=== PATIENT | male | born 1990 | race Caucasian/White ===

== ENCOUNTER 2020-10-26 14:13 | Emergency (ER) | payer BC ==
[2020-10-26] MEDS ORDERED: methylPREDNISolone Sodium Succinate 125 MG/2 ML SDV IVPUSH PRN (17:52)
[2020-10-26] MEDS ORDERED: diphenhydrAMINE 50 MG/ML SDV IVPUSH PRN (17:52)
[2020-10-26] MEDS ORDERED: Albuterol 6.7 GM Inhaler INH PRN (17:52)
[2020-10-26] MEDS ORDERED: EPINEPHrine 1 MG/ML SDV IM PRN (17:52)
[2020-10-26] MEDS ORDERED: Famotidine 20 MG/2 ML SDV IVPUSH PRN (17:52)
--- NOTE | 2020-10-26 17:59 | EDM.PDOC ---
ED HPI GENERAL MEDICAL PROBLEM - General Chief Complaint: Respiratory Problem Stated Complaint: COVID + SOB Time Seen by Provider: 10/26/20 17:28 Source of Information: Reports: Patient History Limitations: Reports: No Limitations - History of Present Illness INITIAL COMMENTS - FREE TEXT/NARRATIVE: 29-year-old male presents the emergency department with worsening Covid symptoms . Patient states he was diagnosed with Covid on October 20, 2020. He states he had symptoms 3 days prior to that. He presents today with worsening shortness of breath, cough and pain behind his eyes. He states he has had mild nausea without vomiting. He states he has not been eating much more than crackers however he has been able to take p.o. fluids adequately. He is also stated that he has had some diarrhea however this seems to have resolved. States he is otherwise healthy. He does not smoke, drinks alcohol on occasion and does not use recreational drugs. He has no past medical history and does not take any prescription medications. - Related Data Allergies Allergy/AdvReac Type Severity Reaction Status Date / Time No Known Allergies Allergy Verified 10/26/20 17:57 Home Meds: Home Meds . [No Known Home Meds] 10/26/20 [History] Past Medical History Other Musculoskeletal History: dislocated L elbow with surgeries - Past Surgical History GI Surgical History: Reports: Appendectomy Social & Family History - Tobacco Use Years of Tobacco use: 15 Packs/Tins Daily: 3 - Caffeine Use Caffeine Use: Reports: Tea - Recreational Drug Use Recreational Drug Use: No ED ROS GENERAL - Review of Systems Review Of Systems: Comprehensive ROS is negative, except as noted in HPI. ED EXAM, GENERAL - Physical Exam Exam: See Below Exam Limited By: No Limitations General Appearance: Alert, WD/WN, Mild Distress Ears: Normal External Exam, Hearing Grossly Normal Nose: Normal Inspection Throat/Mouth: Normal Inspection, Normal Lips, Normal Voice, No Airway Compromise Head: Atraumatic Neck: Normal Inspection, Supple Respiratory/Chest: Normal Breath Sounds, No Accessory Muscle Use, Chest Non- Tender, Respiratory Distress (Mild), Decreased Breath Sounds. No: Lungs Clear Cardiovascular: Normal Peripheral Pulses, Regular Rate, Rhythm, No Edema, No Murmur, Tachycardia Peripheral Pulses: 2+: Radial (L), Radial (R) GI/Abdominal: Normal Bowel Sounds, Soft, Non-Tender, No Distention (Male) Exam: Deferred Rectal (Males) Exam: Deferred Back Exam: Normal Inspection Extremities: Normal Inspection Neurological: Alert, Oriented, Normal Cognition Psychiatric: Normal Affect, Normal Mood Skin Exam: Warm, Intact, Normal Color, No Rash, Diaphoretic Lymphatic: No Adenopathy Course - Vital Signs Text/Narrative:: At the time of my evaluation, the patient's O2 saturations are 91 to 92% on room air. He does appear fatigued. His conjunctiva are injected bilaterally. He does have a spontaneous nonproductive cough noted when asked to deep breathe. Lung sounds are diminished bilaterally. I think this patient would be a candidate for monoclonal antibody treatment. I spoke with the patient to provide information about Regeneron treatment for himself. I offered her the patient and caregiver [employer] Regeneron fax sheet to read and review. I stated the drug has been approved by an emergency use authorization process and has not been fully FDA approved or reviewed. The patient meets the EUA requirements. I discussed there are other potential treatment options that are currently not FDA approved to treat COVID-19. Offered opportunity to ask questions and all questions were answered. The patient voiced understanding and agreed to proceed with the treatment for himself. I will also obtain a portable chest x-ray. Last Recorded V/S: Last Vital Signs Temp 101.5 F H 10/26/20 18:31 Pulse 101 H 10/26/20 15:29 Resp 18 10/26/20 15:29 BP 149/99 H 10/26/20 15:29 Pulse Ox 91 L 10/26/20 18:09 - Orders/Labs/Meds Orders: Active Orders 24 hr Category Date Time Status RT Incentive Spirometry [RC] Q1HWA Care 10/26/20 17:52 Active RT Post Treatment Assessment [RC] Click to Edit Care 10/26/20 17:53 Active RT Pre-Treatment Assessment [RC] Click to Edit Care 10/26/20 17:53 Active Vital Signs [RC] Q15M Care 10/26/20 17:53 Active Chest 1V Frontal [CR] Stat Exams 10/26/20 17:52 Taken Albuterol [Proventil HFA] Med 10/26/20 17:52 Active See Dose Instructions INH Q2H PRN EPINEPHrine [Adrenalin] Med 10/26/20 17:52 Active 0.3 mg IM ONETIME PRN Famotidine [Pepcid] Med 10/26/20 17:52 Active 20 mg IVPUSH ONETIME PRN Sodium Chloride 0.9% [Saline Flush] Med 10/26/20 18:00 Active 30 ml FLUSH ASDIRECTED diphenhydrAMINE [Benadryl] Med 10/26/20 17:52 Active 50 mg IVPUSH ONETIME PRN methylPREDNISolone Sod Succ [Solu-MEDROL] Med 10/26/20 17:52 Active 125 mg IVPUSH ONETIME PRN Medication Orders Albuterol (Albuterol 6.7 Gm Inhaler) 0 gm INH Q2H PRN PRN Reason: Shortness of Breath Last Admin: 10/26/20 18:08 Dose: 2 puff Documented by: BARBARA Diphenhydramine HCl (Diphenhydramine 50 Mg/Ml Sdv) 50 mg IVPUSH ONETIME PRN PRN Reason: hypersensitivity reaction Epinephrine HCl (Epinephrine 1 Mg/Ml Sdv) 0.3 mg IM ONETIME PRN PRN Reason: hypersensitivity reaction Famotidine (Famotidine 20 Mg/2 Ml Sdv) 20 mg IVPUSH ONETIME PRN PRN Reason: hypersensitivity reaction Methylprednisolone Sodium Succinate (Methylprednisolone Sodium Succinate 125 Mg/2 Ml Sdv) 125 mg IVPUSH ONETIME PRN PRN Reason: hypersensitivity reaction Sodium Chloride (Sodium Chloride 0.9% 10 Ml Syringe) 30 ml FLUSH ASDIRECTED [facility] Meds: Medications Generic Name Dose Route Start Last Admin Trade Name Freq PRN Reason Stop Dose Admin Albuterol 0 gm 10/26/20 17:52 10/26/20 18:08 Albuterol 6.7 Gm Inhaler INH 2 puff Q2H PRN Administration Shortness of Breath Diphenhydramine HCl 50 mg 10/26/20 17:52 Diphenhydramine 50 Mg/Ml Sdv IVPUSH ONETIME PRN hypersensitivity reaction Epinephrine HCl 0.3 mg 10/26/20 17:52 Epinephrine 1 Mg/Ml Sdv IM ONETIME PRN hypersensitivity reaction Famotidine 20 mg 10/26/20 17:52 Famotidine 20 Mg/2 Ml Sdv IVPUSH ONETIME PRN hypersensitivity reaction Methylprednisolone Sodium Succinate 125 mg 10/26/20 17:52 Methylprednisolone Sodium Succinate 125 Mg/2 Ml Sdv IVPUSH ONETIME PRN hypersensitivity reaction Sodium Chloride 30 ml 10/26/20 18:00 Sodium Chloride 0.9% 10 Ml Syringe FLUSH ASDIRECTED BETTIE Discontinued Medications Generic Name Dose Route Start Last Admin Trade Name [place] PRN Reason Stop Dose Admin Acetaminophen 975 mg 10/26/20 18:02 10/26/20 18:31 Acetaminophen 325 Mg Tab PO 10/26/20 18:03 975 mg NOW ONE Administration CASIRIVIMAB/IMDEVIMAB 10 ml/ 110 mls @ 220 mls/hr 10/26/20 17:52 10/26/20 18:30 Sodium Chloride IV 10/26/20 18:21 220 mls/hr ONETIME ONE Administration - Re-Assessments/Exams Free Text/Narrative Re-Assessment/Exam: 10/26/20 18:49 Portable view of the chest shows scattered infiltrates noted to both lungs. Compatible with Covid pneumonia. Formal radiologist report is pending. 10/26/20 20:20 Patient receive Regeneron treatment with out issue. He has been monitored for an hour after receiving the infusion. He will be discharged home Departure - Departure Time of Disposition: 20:21 Disposition: Home, Self-Care 01 Condition: Good Clinical Impression: COVID-19 - Discharge Information Referrals: PCP,None [Primary Care Provider] - Forms: ED Department Discharge Additional Instructions: You were seen in the emergency department with worsening Covid symptoms. Chest x-ray was completed which does show scattered areas of pneumonia which is consistent with Covid. While in the emergency department you received an antibody treatment called Regeneron. You will likely start to feel better in the next day or 2. You also received an albuterol inhaler. You may use this medication every 2-4 hours as needed for shortness of breath. Keep in mind that if you are using it every 2 hours you may notice that your heart rate speeds up significantly. You are also given an incentive spirometer to use. Recommend you use this every hour while awake to help open up your lungs. Take Tylenol 650 mg every 4 hours as needed for fever or discomfort or ibuprofen 600 mg every 6-8 hours as needed for discomfort. Be sure to drink plenty of fluids. Should your condition worsen or change, do not hesitate returning to the emergency department. Sepsis Event Note (ED) - Focused Exam Vital Signs: Vital Signs Temp Temp Pulse Resp BP Pulse Ox Pulse Ox 10/26/20 18:31 101.5 F H 10/26/20 18:09 91 L 10/26/20 15:29 99.4 F 101 H 18 149/99 H 94 L - My Orders Last 24 Hours: My Active Orders 10/26/20 17:52 RT Incentive Spirometry [RC] Q1HWA Chest 1V Frontal [CR] Stat Albuterol [Proventil HFA] See Dose Instructions INH Q2H PRN EPINEPHrine [Adrenalin] 0.3 mg IM ONETIME PRN Famotidine [Pepcid] 20 mg IVPUSH ONETIME PRN diphenhydrAMINE [Benadryl] 50 mg IVPUSH ONETIME PRN methylPREDNISolone Sod Succ [Solu-MEDROL] 125 mg IVPUSH ONETIME PRN 10/26/20 17:53 RT Post Treatment Assessment [RC] Click to Edit RT Pre-Treatment Assessment [RC] Click to Edit Vital Signs [RC] Q15M 10/26/20 18:00 Sodium Chloride 0.9% [Saline Flush] 30 ml FLUSH ASDIRECTED - Assessment/Plan Last 24 Hours: My Active Orders 10/26/20 17:52 RT Incentive Spirometry [RC] Q1HWA Chest 1V Frontal [CR] Stat Albuterol [Proventil HFA] See Dose Instructions INH Q2H PRN EPINEPHrine [Adrenalin] 0.3 mg IM ONETIME PRN Famotidine [Pepcid] 20 mg IVPUSH ONETIME PRN diphenhydrAMINE [Benadryl] 50 mg IVPUSH ONETIME PRN methylPREDNISolone Sod Succ [Solu-MEDROL] 125 mg IVPUSH ONETIME PRN 10/26/20 17:53 RT Post Treatment Assessment [RC] Click to Edit RT Pre-Treatment Assessment [RC] Click to Edit Vital Signs [RC] Q15M 10/26/20 18:00 Sodium Chloride 0.9% [Saline Flush] 30 ml FLUSH ASDIRECTED
[2020-10-26] MEDS ORDERED: Sodium Chloride 0.9% 10 ML Syringe FLUSH SCH (18:00)
[2020-10-26] MEDS ORDERED: Acetaminophen 325 MG Tab PO ONE (18:02)
--- NOTE | 2020-10-27 06:54 | CR ---
Chest: Frontal view of the chest was obtained. Comparison: No prior chest imaging is available. Patchy areas of increased density are seen within both lungs. Heart size and mediastinum are normal. Bony structures are unremarkable. Impression: 1. Findings compatible with moderately severe bilateral COVID pneumonia. Diagnostic code #3
== END 2020-10-26 20:35 | disposition home or self-care (01) ==
LOC: JD.ED 14:13
DX: U07.1 COVID-19 (principal); Z72.0 Tobacco use
CPT/HCPCS: 71045; 94640; 99285; A9270; M0243; Q0243; 99284